=== PATIENT | male | born 2000 | race Caucasian/White ===

== ENCOUNTER 2022-11-03 11:47 | Outpatient (REF) | payer MEDICAID, SELFPAY ==
--- NOTE | ~2022-11-03 | XR_ITS ---
EXAMINATION: XR AP STANDING KNEE, BILATERAL XR KNEE, RIGHT CLINICAL INFORMATION: Pain. COMPARISON: None. TECHNIQUE: AP standing view of both knees and sunrise and lateral views of the right knee. FINDINGS: No bony abnormalities identified on AP standing view of both knees. Joint spaces are maintained. [place] and lateral views of the right knee do not demonstrate any significant bony abnormality. There is a small right knee effusion. XR/XR knee RT 2V IMPRESSION: Small right knee effusion without bony abnormality appreciated.
--- NOTE | ~2022-11-03 | XR_ITS ---
EXAMINATION: XR AP STANDING KNEE, BILATERAL XR KNEE, RIGHT CLINICAL INFORMATION: Pain. COMPARISON: None. TECHNIQUE: AP standing view of both knees and sunrise and lateral views of the right knee. FINDINGS: No bony abnormalities identified on AP standing view of both knees. Joint spaces are maintained. [place] and lateral views of the right knee do not demonstrate any significant bony abnormality. There is a small right knee effusion. XR/XR knee standing BI IMPRESSION: Small right knee effusion without bony abnormality appreciated.
== END 2022-11-03 11:48 | disposition home or self-care (01) ==
LOC: HO.HOSX 11:47
PROVIDERS: Visit Provider Orthopaedic Surgery
DX: M23.91 Unspecified internal derangement of right knee (principal)
CPT/HCPCS: 73560; 73565; 99202

== ENCOUNTER 2022-12-01 14:03 | Outpatient (AMB) | payer MEDICAID, SELFPAY ==
--- NOTE | 2022-12-01 14:04 | MHC.OFFVIS ---
Intake Vital Signs 12/01/22 14:17 Height 5 ft 9 in Weight 155 lb BMI 22.9 Intake Visit Reasons: OV-Right knee pain F/U Intake Note: Mc 22 yr old male presents today for his follow up visit for his derangement of right knee ROM. States his knee has been giving out to the point where he feels as if he might fall down. Also states he is experiencing numbness on his left foot and mild pain in his left knee possible due to over compensating for his right knee/leg. ? Allergies bee venom protein (honey bee) Allergy (Verified 12/01/22 14:16) Anaphylaxis shellfish derived Allergy (Verified 12/01/22 14:16) Anaphylaxis tree nut Allergy (Verified 12/01/22 14:16) Anaphylaxis latex Allergy (Uncoded 12/01/22 14:16) Hives HPI OV-Right knee pain F/U HPI Details 22-year-old male who presents in the office today for a follow up of right knee pain, which began on 10/03/2022 status post squatting down and feeling a painful pop in the right knee. The patient reports his knee has been giving out and feels the knee is going to make him fall. He states he was squatting on his knee at home a few months when he heard it pop after a twist. Due to this he was unable to work for a short while. He has since returned to work. He states he stopped wearing the brace as directed but has been using a spring brace that slides up to the knee while at work. He states he has a sharp pain. He confirms a fall at work. He states he gets pain prior to the right knee giving out. He states he is unable to walk or run the same. Patient states he was taking Tylenol but began to break out in a rash so he stopped using it. He was concerned he was taking to much of it. He has been using Biofreeze with mild relief. The patient has also been experiencing numbness of the left foot with mild pain in the left knee due to over compensation of the right lower extremity. Patient works as a personal fitness manager. [facility] Social History (Updated 11/03/22 @ 14:22 by Julia Randall CMA) Patient Tobacco Use Status: Never used Tobacco Current occupational status: employed Current occupation: [employer] Review of Systems Const All systems reviewed & are unremarkable except as noted in HPI and below Physical Exam Vital Signs: BMI result Body Mass Index 22.9 Const General: cooperative and no acute distress Orientation/consciousness: patient oriented x3 Resp Effort & Inspection: normal respiratory effort and able to speak in complete sentences Cardio Peripheral pulses: Peripheral pulses 2+ throughout Neuro General: patient oriented x3 Extrem Other: Right knee: Normal to inspection. No ecchymosis, erythema, or joint effusion. No tenderness to palpation along the lateral joint line. Slight tenderness to palpation medial joint line. Lacking about 10 degrees of full extension. Full knee flexion. Negative Karli's. Negative anterior draw. NVI. Psych Mental Status: mental status grossly normal Assessment & Plan Assessment & Plan (1) Internal derangement of right knee: Code(s): M23.91 - Unspecified internal derangement of right knee Plan Mr. Bynum is a 22-year-old male who presents in the office today for a follow up of right knee pain, which began on 10/03/2022 status post squatting down and feeling a painful pop in the right knee. The patient reports his knee has been giving out and feels the knee is going to make him fall. He states he was squatting on his knee at home a few months when he heard it pop after a twist. Due to this he was unable to work for a short while. He has since returned to work. He states he stopped wearing the brace as directed but has been using a spring brace that slides up to the knee while at work. He states he has a sharp pain. He confirms a fall at work. He states he gets pain prior to the right knee giving out. He states he is unable to walk or run the same. Patient states he was taking Tylenol but began to break out in a rash so he stopped using it. He was concerned he was taking to much of it. He has been using Biofreeze with mild relief. The patient has also been experiencing numbness of the left foot with mild pain in the left knee due to over compensation of the right lower extremity. Patient works as a personal fitness manager. I discussed the role of conventional treatment verse surgical intervention. The patient will be referred for an MRI to evaluate the integrity of the right knee. In the event the insurance needs he will be referred to physical therapy. He was placed in a genumed knee brace. He was educated to only wear the brace at work. He needs to come out of the brace and work on at home exercises while at home. These were demonstrated while in the office today. He was given a work note stating he has a 10 pound weight lifting restriction. He is to avoid squatting and no climbing. Follow up will be after he has obtained the MRI. He will call the office status post MRI, or sooner if needed. Orders: Orders MR knee RT wo con Today M23.91 - Unspecified internal derangement of right knee Patient Instructions: Scribed for Cyn Zayas PA-C by Elvia Nuñez medical reimbursement manager, on 12/01/2022 at 2:07 pm, EST. Your attestation Coding Level of Care Code Est Pt Level 4 (09520) Diagnoses Internal derangement of right knee M23.91
[2022-12-01 14:17] VITALS: BMI 22.9
== END 2022-12-01 14:41 | disposition home or self-care (01) ==
PROVIDERS: PCP Pediatrics; Visit Provider Physician Assistant
DX: M23.91 Unspecified internal derangement of right knee (principal)
CPT/HCPCS: 99214

== ENCOUNTER → 2022-12-01 14:03 | Outpatient (BNVA) | payer MEDICAID, SELFPAY | PROVIDERS: PCP Pediatrics; Visit Provider Physician Assistant | DX: M23.91 Unspecified internal derangement of right knee (principal) | CPT/HCPCS: 99212 ==